=== PATIENT | male | born 1970 | race Caucasian/White ===

== ENCOUNTER 2016-07-25 12:06 | Emergency (ER) | payer OTHER ==
[~2016-07-25] VITALS: Ht 195.6 cm; Wt 96.6 kg
[~2016-07-25 12:06] MED LIST: ASPIRIN EC81 M1 PO; ATENOLOL 25 MG25 M1 PO; ATENOLOL 50MG T50 M1 PO; CEFTIN 250 MG250 MG PO; CIPROFLOXACIN500 M1 PO; FIBER500 MG PO; FLAGYL500 MG PO; HYDROCODON-ACE1 EAC7 PO; LIPITOR 20 MG T20 M1 PO; RAPAFLO4 MG PO
== END 2016-07-25 13:48 ==
LOC: ER 12:06
DX: T18.128A Food in esophagus causing other injury, initial encounter (principal); Z95.4 Presence of other heart-valve replacement; I10 Essential (primary) hypertension; E78.5 Hyperlipidemia, unspecified; Z98.890 Other specified postprocedural states; Z88.5 Allergy status to narcotic agent; Z88.1 Allergy status to other antibiotic agents; F10.99 Alcohol use, unspecified with unspecified alcohol-induced disorder; X58.XXXA Exposure to other specified factors, initial encounter; Y93.89 Activity, other specified; Y92.89 Other specified places as the place of occurrence of the external cause; Y99.8 Other external cause status